=== PATIENT | female | born 1995 | race Caucasian/White ===

== ENCOUNTER 2017-12-16 12:36 | Emergency (ER) | payer OTHER ==
[2017-12-16 12:47] VITALS: BP 122/88
[2017-12-16] MEDS ORDERED: MOTRIN400 MG PO (12:52)
[2017-12-16] MEDS ORDERED: PENICILLN VK500 MG PO (12:52)
== END 2017-12-16 13:25 | disposition home or self-care (01) | DRG 159 ==
LOC: ED 12:36
DX: K02.9 Dental caries, unspecified (principal); K03.81 Cracked tooth

== ENCOUNTER 2018-09-20 16:59 | Emergency (ER) | payer MEDICAID ==
[~2018-09-20] VITALS: Ht 172.7 cm; Wt 75.0 kg
[~2018-09-20 16:59] MED LIST: MOTRIN400 MG PO; PENICILLN VK500 MG PO
[2018-09-20] MEDS ORDERED: AMOXICILLIN875 MG PO (17:40)
[2018-09-20 17:50] VITALS: BP 130/77
== END 2018-09-20 17:50 | disposition home or self-care (01) | DRG 156 ==
LOC: ED 16:59
PROC: 3E1B78Z Irrigation of Ear using Irrigating Substance, Via Natural or Artificial Opening (ICD-10-PCS; principal; 2018-09-20)
PROC: 3E1B78Z Irrigation of Ear using Irrigating Substance, Via Natural or Artificial Opening (ICD-10-PCS; 2018-09-20)
DX: H61.23 Impacted cerumen, bilateral (principal); J02.9 Acute pharyngitis, unspecified

== ENCOUNTER 2018-10-15 09:58 | Emergency (ER) | payer OTHER ==
[~2018-10-15] VITALS: Ht 172.7 cm; Wt 75.0 kg
[~2018-10-15 09:58] MED LIST changes: +AMOXICILLIN875 MG PO
[2018-10-15] MEDS ORDERED: PENICILLN VK500 MG PO (10:07)
[2018-10-15] MEDS ORDERED: MOTRIN400 MG PO (10:07)
[2018-10-15 10:16] VITALS: BP 126/77
== END 2018-10-15 10:16 | disposition home or self-care (01) ==
LOC: ED 09:58
DX: K08.89 Other specified disorders of teeth and supporting structures (principal); H92.01 Otalgia, right ear; R68.84 Jaw pain